=== PATIENT | female | born 1965 | race Caucasian/White ===

== ENCOUNTER 2016-07-23 02:02 | Emergency (ER) | payer OTHER, MEDICAID ==
[~2016-07-23] VITALS: Ht 160 cm; Wt 77.1 kg
[~2016-07-23 02:02] MED LIST: ALBU8.5H4 IH; BUDE10.22 IH; CLON1TAB PO; GLIP10TA11 PO; IPRA12.9 IH; LEVO100T9 PO; LEVO500T15 PO; METF10002 PO; METF500T4 PO; METH4TAB PO; NICO1PAT23 TD; ZIPR80CA2 PO
[2016-07-23 03:16] LABS: BASOPHILS # (AUTO) 0.1 /CMM (0.0-0.2); BASOPHILS % (AUTO) 0.8 % (0.0-2.0); DIFF TOTAL % 100 %; EOSINOPHILS # (AUTO) 0.2 /CMM (0.0-0.7); EOSINOPHILS % (AUTO) 2.9 % (0.0-6.0); HEMATOCRIT 37 % (33-45); HEMOGLOBIN 12.1 g/dL (11.5-14.8); LYMPHOCYTES # (AUTO) 2.3 /CMM (0.8-4.8); LYMPHOCYTES % (AUTO) 32.9 % (20.0-44.0); MEAN CORPUSCULAR HEMOGLOBIN 28 PG (26.0-33.0); MEAN CORPUSCULAR HGB CONC 33 g/dl (31.0-36.0); MEAN CORPUSCULAR VOLUME 84 fL (82-100); MONOCYTES # (AUTO) 0.7 /CMM (0.1-1.30); MONOCYTES % (AUTO) 9.9 % (2.0-12.0); NEUTROPHILS # (AUTO) 3.8 /CMM (1.8-8.9); NEUTROPHILS % (AUTO) 53.5 % (43.0-81.0); PLATELET COUNT (AUTO) 253 /CMM (150-450); RED BLOOD CELL COUNT(AUTO) 4.35 MIL/uL (4.0-5.2); WHITE BLOOD COUNT (AUTO) 7.1 K/uL (4.3-11.0)
[2016-07-23 03:51] LABS: CANNABINOID, URINE NEGATIVE (NEGATIVE); PHENCYCLIDINE SCREEN,URINE NEGATIVE (NEGATIVE)
[2016-07-23 03:53] LABS: ALANINE AMINOTRANSFERASE 30 U/L (12-78); ALBUMIN 3.5 g/dL (3.4-5.0); ANION GAP 13 (5-14); ASPARTATE AMINOTRANSFERASE 18 U/L (15-37); BILIRUBIN,TOTAL 0.2 mg/dL (0.2-1.0); CALCIUM, SERUM 8.7 mg/dL (8.5-10.1); CARBON DIOXIDE 26 mmol/L (21-32); CHLORIDE 103 mmol/L (98-107); CREATININE 0.6 mg/dL (0.6-1.3); GFR 105 mL/min (>60); GLUCOSE 105 mg/dL (74-106); POTASSIUM 4.2 mmol/L (3.5-5.1); SODIUM SERUM 138 mmol/L (136-145); TOTAL PROTEIN, SERUM 6.9 g/dL (6.4-8.2); UREA NITROGEN, BLOOD 22 mg/dL (7-18)
[2016-07-23 03:58] LABS: ACETAMINOPHEN < 2 ug/ml (10-30); INDIRECT BILIRUBIN 0.2 mg/dL (0.0-1.1); SALICYLATE 2.5 mg/dL (2.8-20.0)
[2016-07-23 10:23] VITALS: BP 132/84
== END 2016-07-23 10:24 | disposition home or self-care (01) ==
LOC: ER 02:13
DX: F32.9 Major depressive disorder, single episode, unspecified (principal); F19.10 Other psychoactive substance abuse, uncomplicated; E03.9 Hypothyroidism, unspecified; F20.9 Schizophrenia, unspecified; F31.9 Bipolar disorder, unspecified; E11.9 Type 2 diabetes mellitus without complications; Z71.6 Tobacco abuse counseling; Z87.891 Personal history of nicotine dependence
CPT/HCPCS: 36415; 80048-TC; 80076-TC; 80305; 85025-TC; A4606; G6038-TC; G6039-TC; G6040-TC; Z7610

== ENCOUNTER 2016-08-09 02:54 | Emergency (ER) | payer OTHER, MEDICAID | END 2016-08-09 03:15 | disposition left against medical advice (07) | LOC: ER 02:55 | DX: Z53.21 Procedure and treatment not carried out due to patient leaving prior to being seen by health care provider (principal) ==

== ENCOUNTER 2016-08-09 22:40 | Inpatient (IN) | payer OTHER, MEDICAID ==
[~2016-08-09] VITALS: Ht 160 cm; Wt 77.1 kg
[2016-08-09 23:55] LABS: BASOPHILS # (AUTO) 0.1 /CMM (0.0-0.2); BASOPHILS % (AUTO) 0.6 % (0.0-2.0); DIFF TOTAL % 100 %; EOSINOPHILS # (AUTO) 0.2 /CMM (0.0-0.7); HEMATOCRIT 37 % (33-45); HEMOGLOBIN 12.3 g/dL (11.5-14.8); LYMPHOCYTES # (AUTO) 3.3 /CMM (0.8-4.8); LYMPHOCYTES % (AUTO) 34.9 % (20.0-44.0); MEAN CORPUSCULAR HEMOGLOBIN 28 PG (26.0-33.0); MEAN CORPUSCULAR HGB CONC 34 g/dl (31.0-36.0); MEAN CORPUSCULAR VOLUME 83 fL (82-100); MONOCYTES % (AUTO) 10.9 % (2.0-12.0); NEUTROPHILS # (AUTO) 4.8 /CMM (1.8-8.9); NEUTROPHILS % (AUTO) 51.6 % (43.0-81.0); PLATELET COUNT (AUTO) 249 /CMM (150-450); RED BLOOD CELL COUNT(AUTO) 4.41 MIL/uL (4.0-5.2); WHITE BLOOD COUNT (AUTO) 9.3 K/uL (4.3-11.0)
[2016-08-10 00:02] LABS: ANION GAP 15 (5-14); CALCIUM, SERUM 8.4 mg/dL (8.5-10.1); CARBON DIOXIDE 26 mmol/L (21-32); CHLORIDE 102 mmol/L (98-107); CREATININE 0.6 mg/dL (0.6-1.3); GFR 105 mL/min (>60); GLUCOSE 116 mg/dL (74-106); POTASSIUM 4.1 mmol/L (3.5-5.1); SODIUM SERUM 139 mmol/L (136-145); UREA NITROGEN, BLOOD 18 mg/dL (7-18)
[2016-08-10 04:29] LABS: CANNABINOID, URINE NEGATIVE (NEGATIVE); PHENCYCLIDINE SCREEN,URINE NEGATIVE (NEGATIVE)
[2016-08-10 08:00] VITALS: BP 112/62
[2016-08-10 08:10] VITALS: BP 112/62
[2016-08-10] MEDS ORDERED: MAG HYDROX/AL HYDROX/SIMETH 30 ML UDC PO PRN (08:30)
[2016-08-10] MEDS ORDERED: MAGNESIUM HYDROXIDE 30 ML UDC PO PRN (08:30)
[2016-08-10] MEDS ORDERED: TEMAZEPAM 7.5 MG CAPSULE PO PRN (08:30)
[2016-08-10] MEDS ORDERED: METFORMIN 500 MG TABLET PO SCH (09:00)
[2016-08-10] MEDS ORDERED: Medication Not On Formulary EA (Budesonide/Formoterol Fumarate (Symbicort 80-4.5 Mcg Inh IH SCH (09:00)
[2016-08-10] MEDS ORDERED: DEXTROSE 50%-WATER 50 ML DISP.SYRIN IV PRN (09:00)
[2016-08-10] MEDS: NICOTINE PATCH (21MG) 21 MG PATCH.TD24 TD SCH (10:02)
[2016-08-10] MEDS: glipiZIDE 10 MG TABLET PO SCH (10:10)
[2016-08-10] MEDS: clonazePAM 0.5 MG TABLET PO PRN ×2 (10:17→17:09)
[2016-08-10] MEDS ORDERED: IPRATROPIUM NEB FS 0.5 MG/2.5 ML AMPUL.NEB NEB SCH (11:30)
[2016-08-10] MEDS ORDERED: ALBUTEROL SULFATE 8 GM HFA.AER.AD IH SCH (12:00)
[2016-08-10] MEDS: BLOOD SUGAR DIAGNOSTIC 1 EACH STRIP VI SCH ×3 (12:00→21:16)
[2016-08-10] MEDS: methylPREDNISolone (4MG) 4 MG TABLET PO SCH ×2 (13:43→21:17)
[2016-08-10 16:16] VITALS: BP 103/65
[2016-08-10] MEDS: ESCITALOPRAM OXALATE (10 MG) 10 MG TABLET PO SCH (17:09)
[2016-08-10] MEDS: METFORMIN 500 MG TABLET PO SCH (17:45)
[2016-08-10 20:00] VITALS: BP 93/56
[2016-08-10] MEDS: *INSULIN REGULAR(HUMULIN R)HUM 100 UNIT/ML VIAL SQ PRN (21:21)
[2016-08-10] MEDS ORDERED: QUETIAPINE FUMARATE 100 MG TABLET PO SCH (22:00)
[2016-08-11] MEDS: clonazePAM 0.5 MG TABLET PO PRN ×3 (01:15→14:34)
[2016-08-11 08:00] VITALS: BP 111/67
[2016-08-11] MEDS: ESCITALOPRAM OXALATE (10 MG) 10 MG TABLET PO SCH (08:03)
[2016-08-11] MEDS: glipiZIDE 10 MG TABLET PO SCH (08:03)
[2016-08-11] MEDS: LEVOTHYROXINE SODIUM 100 MCG TABLET PO SCH (08:03)
[2016-08-11] MEDS: METFORMIN 500 MG TABLET PO SCH ×2 (08:03→17:49)
[2016-08-11] MEDS: ACETAMINOPHEN 325 MG TABLET PO PRN ×2 (08:03→14:34)
[2016-08-11] MEDS: NICOTINE PATCH (21MG) 21 MG PATCH.TD24 TD SCH (08:04)
[2016-08-11] MEDS: BLOOD SUGAR DIAGNOSTIC 1 EACH STRIP VI SCH ×4 (08:06→21:23)
[2016-08-11] MEDS: INSULIN REGULAR, HUMAN 100 UNIT/ML 3 ML VIAL SQ PRN (08:09)
[2016-08-11 10:47] LABS: ALBUMIN 3.2 g/dL (3.4-5.0); BILIRUBIN,TOTAL 0.1 mg/dL (0.2-1.0); CALCIUM, SERUM 8.7 mg/dL (8.5-10.1); CREATININE 0.6 mg/dL (0.6-1.3); POTASSIUM 3.9 mmol/L (3.5-5.1); TOTAL PROTEIN, SERUM 6.7 g/dL (6.4-8.2)
[2016-08-11] MEDS: LEVOFLOXACIN (500MG) 500 MG TABLET PO SCH (11:42)
[2016-08-11 16:00] VITALS: BP 104/71
[2016-08-11 20:27] VITALS: BP 94/43
[2016-08-11] MEDS ORDERED: LOPERAMIDE HCL (2 MG CAP) 2 MG CAPSULE PO PRN (20:30)
[2016-08-11] MEDS: QUETIAPINE FUMARATE 100 MG TABLET PO SCH (21:23)
[2016-08-11] MEDS: methylPREDNISolone (4MG) 4 MG TABLET PO SCH (21:23)
[2016-08-12] MEDS: clonazePAM 0.5 MG TABLET PO PRN ×3 (02:35→17:57)
[2016-08-12] MEDS: ACETAMINOPHEN 325 MG TABLET PO PRN (02:36)
[2016-08-12] MEDS: HYDROCODONE/APAP 5/325MG 1 EACH TABLET PO PRN ×3 (03:00→19:36)
[2016-08-12] MEDS: BLOOD SUGAR DIAGNOSTIC 1 EACH STRIP VI SCH ×4 (07:55→21:02)
[2016-08-12] MEDS: INSULIN REGULAR, HUMAN 100 UNIT/ML 3 ML VIAL SQ PRN (07:58)
[2016-08-12] MEDS: LEVOTHYROXINE SODIUM 100 MCG TABLET PO SCH (07:59)
[2016-08-12 08:00] VITALS: BP 100/60
[2016-08-12] MEDS: ESCITALOPRAM OXALATE (10 MG) 10 MG TABLET PO SCH (08:02)
[2016-08-12] MEDS: glipiZIDE 10 MG TABLET PO SCH (08:02)
[2016-08-12] MEDS: NICOTINE PATCH (21MG) 21 MG PATCH.TD24 TD SCH ×2 (08:02→09:00)
[2016-08-12] MEDS: METFORMIN 500 MG TABLET PO SCH ×2 (08:02→17:56)
[2016-08-12] MEDS: LEVOFLOXACIN (500MG) 500 MG TABLET PO SCH (11:37)
[2016-08-12 13:06] LABS: CHOLESTEROL 220 mg/dL (<200); HDL CHOLESTEROL 90 mg/dL (40-60); LDL 111 mg/dL (0-99); TRIGLYCERIDES 201 mg/dL (30-150)
[2016-08-12 16:00] VITALS: BP 93/50
[2016-08-12 19:52] VITALS: BP 133/78
[2016-08-12] MEDS: QUETIAPINE FUMARATE 100 MG TABLET PO SCH (21:02)
[2016-08-12] MEDS: methylPREDNISolone (4MG) 4 MG TABLET PO SCH (21:02)
[2016-08-12] MEDS: *INSULIN REGULAR(HUMULIN R)HUM 100 UNIT/ML VIAL SQ PRN (21:04)
[2016-08-13] MEDS: HYDROCODONE/APAP 5/325MG 1 EACH TABLET PO PRN ×3 (02:08→16:50)
[2016-08-13] MEDS: FLUCONAZOLE (100 MG) 100 MG TABLET PO SCH (02:09)
[2016-08-13] MEDS: clonazePAM 0.5 MG TABLET PO PRN ×2 (07:41→15:44)
[2016-08-13] MEDS: BLOOD SUGAR DIAGNOSTIC 1 EACH STRIP VI SCH ×4 (07:51→21:02)
[2016-08-13] MEDS: METFORMIN 500 MG TABLET PO SCH ×2 (08:08→16:42)
[2016-08-13] MEDS: ESCITALOPRAM OXALATE (10 MG) 10 MG TABLET PO SCH (08:08)
[2016-08-13] MEDS: NICOTINE PATCH (21MG) 21 MG PATCH.TD24 TD SCH (08:08)
[2016-08-13] MEDS: LEVOTHYROXINE SODIUM 100 MCG TABLET PO SCH (08:08)
[2016-08-13] MEDS: glipiZIDE 10 MG TABLET PO SCH (08:08)
[2016-08-13] MEDS: INSULIN REGULAR, HUMAN 100 UNIT/ML 3 ML VIAL SQ PRN ×2 (08:10→16:54)
[2016-08-13 08:19] VITALS: BP 108/72
[2016-08-13] MEDS: LEVOFLOXACIN (500MG) 500 MG TABLET PO SCH (12:08)
[2016-08-13] MEDS: ACETAMINOPHEN 325 MG TABLET PO PRN ×2 (12:42→21:08)
[2016-08-13 16:11] VITALS: BP 116/58
[2016-08-13 20:22] VITALS: BP 116/70
[2016-08-13] MEDS: methylPREDNISolone (4MG) 4 MG TABLET PO SCH (21:10)
[2016-08-13] MEDS ORDERED: QUETIAPINE FUMARATE 100 MG TABLET PO SCH (22:00)
[2016-08-14] MEDS: clonazePAM 0.5 MG TABLET PO PRN ×3 (00:09→16:41)
[2016-08-14] MEDS: HYDROCODONE/APAP 5/325MG 1 EACH TABLET PO PRN ×3 (03:00→18:37)
[2016-08-14] MEDS: ACETAMINOPHEN 325 MG TABLET PO PRN (04:51)
[2016-08-14] MEDS: BLOOD SUGAR DIAGNOSTIC 1 EACH STRIP VI SCH ×4 (07:38→22:02)
[2016-08-14 08:00] VITALS: BP 118/68
[2016-08-14] MEDS: METFORMIN 500 MG TABLET PO SCH ×2 (08:04→16:41)
[2016-08-14] MEDS: NICOTINE PATCH (21MG) 21 MG PATCH.TD24 TD SCH (08:05)
[2016-08-14] MEDS: LEVOTHYROXINE SODIUM 100 MCG TABLET PO SCH (08:05)
[2016-08-14] MEDS: ESCITALOPRAM OXALATE (10 MG) 10 MG TABLET PO SCH (08:05)
[2016-08-14] MEDS: glipiZIDE 10 MG TABLET PO SCH (08:05)
[2016-08-14] MEDS: LEVOFLOXACIN (500MG) 500 MG TABLET PO SCH (10:19)
[2016-08-14] MEDS ORDERED: HYDROCORTISONE 0.5% CREAM 28.35 GM TUBE TP PRN (15:00)
[2016-08-14 16:00] VITALS: BP 106/60
[2016-08-14 20:00] VITALS: BP 102/56
[2016-08-14] MEDS: QUETIAPINE FUMARATE 100 MG TABLET PO SCH (21:55)
[2016-08-14] MEDS: methylPREDNISolone (4MG) 4 MG TABLET PO SCH (21:56)
[2016-08-14] MEDS: TEMAZEPAM 15 MG CAPSULE PO PRN (21:56)
[2016-08-15] MEDS: HYDROCODONE/APAP 5/325MG 1 EACH TABLET PO PRN ×4 (00:33→21:35)
[2016-08-15] MEDS: ACETAMINOPHEN 325 MG TABLET PO PRN (03:34)
[2016-08-15] MEDS: clonazePAM 0.5 MG TABLET PO PRN ×3 (03:34→18:47)
[2016-08-15] MEDS: BLOOD SUGAR DIAGNOSTIC 1 EACH STRIP VI SCH ×4 (07:41→21:52)
[2016-08-15 08:00] VITALS: BP 94/52
[2016-08-15] MEDS: LEVOTHYROXINE SODIUM 100 MCG TABLET PO SCH (08:15)
[2016-08-15] MEDS: METFORMIN 500 MG TABLET PO SCH ×2 (08:15→16:45)
[2016-08-15] MEDS: NICOTINE PATCH (21MG) 21 MG PATCH.TD24 TD SCH ×2 (08:15→08:16)
[2016-08-15] MEDS: ESCITALOPRAM OXALATE (10 MG) 10 MG TABLET PO SCH (08:15)
[2016-08-15] MEDS: LEVOFLOXACIN (500MG) 500 MG TABLET PO SCH (11:16)
[2016-08-15] MEDS: INSULIN REGULAR, HUMAN 100 UNIT/ML 3 ML VIAL SQ PRN (12:07)
[2016-08-15 16:00] VITALS: BP 129/80
[2016-08-15] MEDS: FLUCONAZOLE (100 MG) 100 MG TABLET PO SCH (16:45)
[2016-08-15 20:00] VITALS: BP 108/67
[2016-08-15] MEDS: methylPREDNISolone (4MG) 4 MG TABLET PO SCH (21:48)
[2016-08-15] MEDS: TEMAZEPAM 15 MG CAPSULE PO PRN (21:49)
[2016-08-15] MEDS: QUETIAPINE FUMARATE 100 MG TABLET PO SCH (21:49)
[2016-08-16] MEDS: clonazePAM 0.5 MG TABLET PO PRN ×2 (01:27→08:10)
[2016-08-16] MEDS: ACETAMINOPHEN 325 MG TABLET PO PRN (01:39)
[2016-08-16] MEDS: HYDROCODONE/APAP 5/325MG 1 EACH TABLET PO PRN ×2 (04:31→10:51)
[2016-08-16] MEDS: BLOOD SUGAR DIAGNOSTIC 1 EACH STRIP VI SCH ×2 (07:37→12:42)
[2016-08-16 08:00] VITALS: BP 105/64
[2016-08-16] MEDS: METFORMIN 500 MG TABLET PO SCH (08:10)
[2016-08-16] MEDS: NICOTINE PATCH (21MG) 21 MG PATCH.TD24 TD SCH (08:11)
[2016-08-16] MEDS: LEVOTHYROXINE SODIUM 100 MCG TABLET PO SCH (08:11)
[2016-08-16] MEDS: ESCITALOPRAM OXALATE (10 MG) 10 MG TABLET PO SCH (08:11)
[2016-08-16] MEDS: INSULIN REGULAR, HUMAN 100 UNIT/ML 3 ML VIAL SQ PRN ×2 (08:12→12:42)
[2016-08-16 08:41] LABS: BASOPHILS % (AUTO) 0.4 % (0.0-2.0); DIFF TOTAL % 100 %; EOSINOPHILS % (AUTO) 0.4 % (0.0-6.0); HEMATOCRIT 37 % (33-45); HEMOGLOBIN 12.2 g/dL (11.5-14.8); LYMPHOCYTES # (AUTO) 1.9 /CMM (0.8-4.8); LYMPHOCYTES % (AUTO) 23.3 % (20.0-44.0); MEAN CORPUSCULAR HEMOGLOBIN 28 PG (26.0-33.0); MEAN CORPUSCULAR HGB CONC 33 g/dl (31.0-36.0); MEAN CORPUSCULAR VOLUME 85 fL (82-100); MONOCYTES # (AUTO) 0.3 /CMM (0.1-1.30); MONOCYTES % (AUTO) 3.9 % (2.0-12.0); NEUTROPHILS # (AUTO) 5.9 /CMM (1.8-8.9); PLATELET COUNT (AUTO) 250 /CMM (150-450); RED BLOOD CELL COUNT(AUTO) 4.34 MIL/uL (4.0-5.2); WHITE BLOOD COUNT (AUTO) 8.3 K/uL (4.3-11.0)
[2016-08-16 09:09] LABS: CALCIUM, SERUM 9.6 mg/dL (8.5-10.1); CREATININE 0.9 mg/dL (0.6-1.3); POTASSIUM 4.8 mmol/L (3.5-5.1)
[2016-08-16] MEDS: LEVOFLOXACIN (500MG) 500 MG TABLET PO SCH (10:01)
[2016-08-16 16:00] VITALS: BP 114/66
[2016-08-16] MEDS ORDERED: LACTOBACILLUS RHAMNOSUS GG 1 EACH CAP.SPRINK PO SCH (17:00)
== END 2016-08-16 15:15 | disposition home or self-care (01) | DRG 885 ==
LOC: ER 22:42 → GPS 08-10 07:43
PROVIDERS: ADMIT Psychiatry & Neurology Psychiatry; ATTEND Internal Medicine
DX: F31.5 Bipolar disorder, current episode depressed, severe, with psychotic features (principal); Z59.0 Homelessness; E03.9 Hypothyroidism, unspecified; I10 Essential (primary) hypertension; M19.90 Unspecified osteoarthritis, unspecified site; N76.0 Acute vaginitis; Z87.891 Personal history of nicotine dependence
CPT/HCPCS: 36415; 80048-TC; 80053-TC; 80061-TC; 80305; 82962-TC; 84443-TC; 85025-TC; 87081-TC; A4606; G0480; J1815; J7509; Z7610

== ENCOUNTER 2016-11-14 23:06 | Emergency (ER) | payer OTHER, MEDICAID ==
[~2016-11-14] VITALS: Ht 167.6 cm; Wt 65.3 kg
[~2016-11-14 23:06] MED LIST changes: -ZIPR80CA2 PO
[2016-11-15 00:18] LABS: BASOPHILS # (AUTO) 0.1 /CMM (0.0-0.2); BASOPHILS % (AUTO) 0.7 % (0.0-2.0); EOSINOPHILS # (AUTO) 0.2 /CMM (0.0-0.7); EOSINOPHILS % (AUTO) 2.2 % (0.0-6.0); HEMATOCRIT 35 % (33-45); HEMOGLOBIN 11.3 g/dL (11.5-14.8); LYMPHOCYTES # (AUTO) 2.5 /CMM (0.8-4.8); LYMPHOCYTES % (AUTO) 29.2 % (20.0-44.0); MEAN CORPUSCULAR HEMOGLOBIN 27 PG (26.0-33.0); MEAN CORPUSCULAR HGB CONC 33 g/dl (31.0-36.0); MEAN CORPUSCULAR VOLUME 83 fL (82-100); MONOCYTES # (AUTO) 0.8 /CMM (0.1-1.30); MONOCYTES % (AUTO) 8.7 % (2.0-12.0); NEUTROPHILS # (AUTO) 5.1 /CMM (1.8-8.9); NEUTROPHILS % (AUTO) 59.2 % (43.0-81.0); PLATELET COUNT (AUTO) 264 /CMM (150-450); RDW COEFFICIENT OF VARIATION 17.3 (11.5-15.0); RED BLOOD CELL COUNT(AUTO) 4.23 MIL/uL (4.0-5.2); WHITE BLOOD COUNT (AUTO) 8.7 K/uL (4.3-11.0)
[2016-11-15 00:25] LABS: APPEARANCE,URINE CLEAR (CLEAR); BILIRUBIN,URINE NEGATIVE (NEGATIVE); BLOOD, URINE NEGATIVE Ery/uL (NEGATIVE); COLOR,URINE YELLOW (YELLOW); KETONES,URINE NEGATIVE (NEGATIVE); LEUKOCYTE ESTERASE ,URINE NEGATIVE (NEGATIVE); NITRITE, URINE NEGATIVE (NEGATIVE); PH,URINE 5.5 (5.0-8.0); PROTEIN,URINE NEGATIVE (NEGATIVE); UGLUCOSE NEGATIVE (NEGATIVE); UROBILINOGEN,URINE 0.2 EU/dL (0.2)
--- NOTE | 2016-11-15 00:25 | NUR ---
PT WAS TAKEN TO BED #16 VIA WC. PT AMBULATED FROM THE TO THE [facility].
[2016-11-15 00:28] LABS: CALCIUM, SERUM 8.8 mg/dL (8.5-10.1); CREATININE 0.7 mg/dL (0.6-1.3); POTASSIUM 3.6 mmol/L (3.5-5.1)
[2016-11-15 00:30] LABS: CANNABINOID, URINE NEGATIVE (NEGATIVE); PHENCYCLIDINE SCREEN,URINE NEGATIVE (NEGATIVE)
--- NOTE | 2016-11-15 00:31 | NUR ---
JUAN MIGUEL CUNNINGHAM LCSW IS AT THE BEDSIDE EVALUATING THE PT.
[2016-11-15 00:34] LABS: ALBUMIN 3.9 g/dL (3.4-5.0); BILIRUBIN,DIRECT 0.1 mg/dL (0.0-0.2); BILIRUBIN,TOTAL 0.2 mg/dL (0.2-1.0); TOTAL PROTEIN, SERUM 7.4 g/dL (6.4-8.2)
[2016-11-15 00:38] LABS: SALICYLATE 1.8 mg/dL (2.8-20.0)
--- NOTE | 2016-11-15 02:05 | NUR ---
PT APPEARS TO BE RESTING COMFORTABLY WITH NO S/S OF PAIN OR DISTRESS.
--- NOTE | 2016-11-15 02:17 | NUR ---
pt accepted to [facility]. Accepted by Dr. Jean. # for report [phone].
--- NOTE | 2016-11-15 02:37 | NUR ---
CALLING REPORT TO ACCEPTING RN.
--- NOTE | 2016-11-15 02:45 | NUR ---
REPORT GIVEN TO HOSEA RIGGS AT [facility].
--- NOTE | 2016-11-15 02:57 | NUR ---
PT AMBULATED TO THE BATHROOM WITH A STEADY GAIT.
--- NOTE | 2016-11-15 02:58 | NUR ---
REPORT GIVEN TO HOSEA OLIVA/SIM FOR JAILENE. PT RETURNED FROM THE BATHROOM AND IS RESTING COMFORTABLY IN BED.
--- NOTE | 2016-11-15 04:54 | NUR ---
ASSUMED TRANSFER CARE OF PT AT THIS TIME ON BEHALF OF PRIMARY NURSE HAZEL. REPORT GIVEN TO [facility] STAFF BY HAZEL/HOSEA.
[2016-11-15 05:07] VITALS: BP 144/70
== END 2016-11-15 05:07 ==
LOC: ER 23:06
DX: F32.9 Major depressive disorder, single episode, unspecified (principal); E03.9 Hypothyroidism, unspecified; E11.9 Type 2 diabetes mellitus without complications; F31.9 Bipolar disorder, unspecified; Z87.891 Personal history of nicotine dependence; Z90.89 Acquired absence of other organs
CPT/HCPCS: 36415; 80048; 80076; 80305; 80329; 81001; 85025; 99285; A4606; G0480 ×2; 81000-TC; G6039-TC; Z7610

== ENCOUNTER 2016-12-05 21:29 | Emergency (ER) | payer OTHER ==
[~2016-12-05] VITALS: Ht 162.6 cm; Wt 81.6 kg
--- NOTE | 2016-12-05 21:37 | NUR ---
PT SELF PRESENTS TO ER. AMBULATORY TO BED 10. C/O DEPRESSION/SI W/ PLAN TO HANG HERSELF. PT STATES BEEN GOING ON FOR COUPLE OF DAYS BECAUSE HER SISTER PASSED. DENIES HI. DENIES ANY DISCOMFORT. PLACED ON SI PRECAUTION. STABLE VITALS. AWAITING MD BATRES.
--- NOTE | 2016-12-05 21:45 | NUR ---
DRILLER HAND AT BEDSIDE FOR BLOOD DRAW.
[2016-12-05 21:58] LABS: BASOPHILS # (AUTO) 0.1 /CMM (0.0-0.2); BASOPHILS % (AUTO) 0.7 % (0.0-2.0); EOSINOPHILS # (AUTO) 0.2 /CMM (0.0-0.7); EOSINOPHILS % (AUTO) 2.6 % (0.0-6.0); HEMATOCRIT 34 % (33-45); HEMOGLOBIN 11.2 g/dL (11.5-14.8); LYMPHOCYTES # (AUTO) 3.1 /CMM (0.8-4.8); MEAN CORPUSCULAR HEMOGLOBIN 27 PG (26.0-33.0); MEAN CORPUSCULAR HGB CONC 33 g/dl (31.0-36.0); MEAN CORPUSCULAR VOLUME 81 fL (82-100); MONOCYTES # (AUTO) 0.8 /CMM (0.1-1.30); MONOCYTES % (AUTO) 9.9 % (2.0-12.0); NEUTROPHILS # (AUTO) 3.5 /CMM (1.8-8.9); NEUTROPHILS % (AUTO) 45.8 % (43.0-81.0); PLATELET COUNT (AUTO) 254 /CMM (150-450); RDW COEFFICIENT OF VARIATION 16.5 (11.5-15.0); RED BLOOD CELL COUNT(AUTO) 4.16 MIL/uL (4.0-5.2); WHITE BLOOD COUNT (AUTO) 7.6 K/uL (4.3-11.0)
[2016-12-05 22:09] LABS: CALCIUM, SERUM 8.5 mg/dL (8.5-10.1); CREATININE 0.9 mg/dL (0.6-1.3); POTASSIUM 3.5 mmol/L (3.5-5.1)
--- NOTE | 2016-12-05 23:23 | NUR ---
REPORT TO CHARGE NURSE HAZEL FOR JAILENE.
--- NOTE | 2016-12-06 00:13 | NUR ---
JUAN MIGUEL SURFACE ROOM SHOP OPTICIAN PAGED FOR EVAL.
--- NOTE | 2016-12-06 01:53 | NUR ---
JUAN MIGUEL OSTEOPATHIC PHYSICIAN AT BEDSIDE FOR EXAM.
--- NOTE | 2016-12-06 10:54 | NUR ---
CALLED FOR BREAKFAST TRAY
--- NOTE | 2016-12-06 10:54 | NUR ---
PINKY AT BEDSIDE FOR PSYCH EVAL
--- NOTE | 2016-12-06 11:00 | NUR ---
Patient discharged to home in stable condition. Written and verbal after care instructions given. Patient verbalizes understanding of instruction.
--- NOTE | 2016-12-06 11:01 | NUR ---
PER JADEN MASON PT CAN GO HOME. GAVE REFERRAL TO FOLLOW UP.
[2016-12-06 11:02] VITALS: BP 136/80
--- NOTE | 2016-12-06 11:05 | NUR ---
DENIES ANY HI AND SI.
== END 2016-12-06 11:05 | disposition home or self-care (01) ==
LOC: ER 21:29
DX: F29 Unspecified psychosis not due to a substance or known physiological condition (principal); D64.9 Anemia, unspecified; E11.9 Type 2 diabetes mellitus without complications; F31.9 Bipolar disorder, unspecified; E03.9 Hypothyroidism, unspecified; Z87.891 Personal history of nicotine dependence; Z98.890 Other specified postprocedural states
CPT/HCPCS: 36415; 80048; 80305; 85025; 99284; A4606; G0480; Z7610

== ENCOUNTER 2016-12-23 19:35 | Emergency (ER) | payer OTHER, MEDICAID ==
[~2016-12-23] VITALS: Ht 165.1 cm; Wt 72.6 kg
--- NOTE | 2016-12-23 20:00 | NUR ---
PT PRESENTS TO ER C/O SI WITH PLAN TO HANG SELF. DENIES PHYSICAL COMPLAINTS. REPORTS SHE HAS NOT BEEN TAKING HER PSYCH MEDS. SEEKING VOLUNTARY ADMISSION FOR PSYCH. NAD NOTED. IN ER BED 09.
[2016-12-23 20:09] LABS: APPEARANCE,URINE Clear (CLEAR); BILIRUBIN,URINE Negative (NEGATIVE); BLOOD, URINE Negative Ery/uL (NEGATIVE); COLOR,URINE Yellow (YELLOW); KETONES,URINE Negative (NEGATIVE); LEUKOCYTE ESTERASE ,URINE Trace (NEGATIVE); NITRITE, URINE Negative (NEGATIVE); PROTEIN,URINE Negative (NEGATIVE); UGLUCOSE Negative (NEGATIVE); UROBILINOGEN,URINE 0.2 EU/dL (0.2)
[2016-12-23 20:14] LABS: BASOPHILS # (AUTO) 0.1 /CMM (0.0-0.2); BASOPHILS % (AUTO) 0.7 % (0.0-2.0); EOSINOPHILS # (AUTO) 0.2 /CMM (0.0-0.7); EOSINOPHILS % (AUTO) 2.7 % (0.0-6.0); HEMATOCRIT 36 % (33-45); HEMOGLOBIN 11.9 g/dL (11.5-14.8); LYMPHOCYTES # (AUTO) 3.5 /CMM (0.8-4.8); LYMPHOCYTES % (AUTO) 45.8 % (20.0-44.0); MEAN CORPUSCULAR HEMOGLOBIN 27 PG (26.0-33.0); MEAN CORPUSCULAR HGB CONC 33 g/dl (31.0-36.0); MEAN CORPUSCULAR VOLUME 82 fL (82-100); MONOCYTES # (AUTO) 0.5 /CMM (0.1-1.30); MONOCYTES % (AUTO) 6.8 % (2.0-12.0); NEUTROPHILS # (AUTO) 3.3 /CMM (1.8-8.9); PLATELET COUNT (AUTO) 262 /CMM (150-450); RED BLOOD CELL COUNT(AUTO) 4.38 MIL/uL (4.0-5.2); WHITE BLOOD COUNT (AUTO) 7.6 K/uL (4.3-11.0)
[2016-12-23 20:29] LABS: CALCIUM, SERUM 9.1 mg/dL (8.5-10.1); CARBON DIOXIDE 27 mmol/L (21-32); CHLORIDE 101 mmol/L (98-107); CREATININE 0.8 mg/dL (0.6-1.3); GLUCOSE 123 mg/dL (74-106); POTASSIUM 3.5 mmol/L (3.5-5.1); SODIUM SERUM 138 mmol/L (136-145); UREA NITROGEN, BLOOD 20 mg/dL (7-18)
[2016-12-23 20:29] LABS: BACTERIA,URINE None seen /HPF (None Seen); RBC,URINE NONE SEEN /HPF (0-2); SQUAMOUS EPITHELIAL CELL,UR Few /HPF (None Seen)
[2016-12-23 20:35] LABS: ACETAMINOPHEN < 10 ug/ml (10-30); ALANINE AMINOTRANSFERASE 45 U/L (12-78); ALBUMIN 3.6 g/dL (3.4-5.0); ALCOHOL, BLOOD 122 mg/dL (0-0); ALKALINE PHOSPHATASE 54 U/L (46-116); ASPARTATE AMINOTRANSFERASE 27 U/L (15-37); BILIRUBIN,TOTAL 0.2 mg/dL (0.2-1.0); SALICYLATE 2.2 mg/dL (2.8-20.0); TOTAL PROTEIN, SERUM 7.6 g/dL (6.4-8.2)
--- NOTE | 2016-12-23 22:48 | NUR ---
RESTING QUIETLY, NAD NOTED. AWAITING ART FOR PSYCH EVAL.
--- NOTE | 2016-12-23 22:50 | NUR ---
CALLED ART FOR PSYCH EVAL, ETA WITHIN THE HOUR
--- NOTE | 2016-12-23 23:44 | NUR ---
ART AT BEDSIDE
[2016-12-24 00:36] VITALS: BP 126/65
--- NOTE | 2016-12-24 01:43 | NUR ---
[facility] CALLED FOR TRANSPORT. ETA > 4.5 HRS. [facility] CALLED. ETA 45-60 MIN.
--- NOTE | 2016-12-24 01:47 | NUR ---
RESTING QUIETLY, NAD NOTED. ALL NEEDS ATTENDED TO.
--- NOTE | 2016-12-24 02:52 | NUR ---
PT TRANSPORTED TO [place] WITH [facility]. REPORT GIVEN TO UI DEVELOPER. ALL PAPERWORK WITH UI DEVELOPER.
== END 2016-12-24 03:12 ==
LOC: ER 19:35
DX: R45.851 Suicidal ideations (principal); F31.9 Bipolar disorder, unspecified; F10.10 Alcohol abuse, uncomplicated; E11.9 Type 2 diabetes mellitus without complications; E03.9 Hypothyroidism, unspecified; M77.9 Enthesopathy, unspecified; Z90.89 Acquired absence of other organs; Z98.890 Other specified postprocedural states; Z87.891 Personal history of nicotine dependence
CPT/HCPCS: 36415; 80048-TC; 80076-TC; 80305; 81000-TC; 85025-TC; A4606; G0480; Z7610

== ENCOUNTER 2017-01-11 02:35 | Emergency (ER) | payer OTHER, MEDICAID ==
[~2017-01-11] VITALS: Ht 160 cm; Wt 90.7 kg
[2017-01-11 02:40] VITALS: BP 152/78
--- NOTE | 2017-01-11 03:35 | NUR ---
Patient eloped from facility. ER MD notified.
== END 2017-01-11 03:39 | disposition left against medical advice (07) ==
LOC: ER 02:37
DX: F31.9 Bipolar disorder, unspecified (principal); Z76.5 Malingerer [conscious simulation]; E11.9 Type 2 diabetes mellitus without complications; G89.29 Other chronic pain; Z91.19 Patient's noncompliance with other medical treatment and regimen; E03.9 Hypothyroidism, unspecified; Z87.891 Personal history of nicotine dependence
CPT/HCPCS: A4606; Z7502; Z7610

== ENCOUNTER 2017-01-11 21:22 | Emergency (ER) | payer OTHER, MEDICAID ==
[~2017-01-11] VITALS: Ht 160 cm; Wt 90.7 kg
--- NOTE | 2017-01-11 21:28 | NUR ---
PT TO ER BED 10. C/O AUDITORY HALLUCINATION TELLING HER TO KILL HERSELF. PT STATES SUICIDAL W/ PLAN TO HANG HERSELF. APPEARS INTOXICATED. VERBALLY ABUSIVE TO STAFF. PLACED ON SI PRECAUTION. AWAITING MD BATRES.
[2017-01-11 22:13] LABS: BASOPHILS # (AUTO) 0.1 /CMM (0.0-0.2); BASOPHILS % (AUTO) 0.6 % (0.0-2.0); EOSINOPHILS # (AUTO) 0.4 /CMM (0.0-0.7); EOSINOPHILS % (AUTO) 3.9 % (0.0-6.0); HEMATOCRIT 34 % (33-45); HEMOGLOBIN 10.9 g/dL (11.5-14.8); LYMPHOCYTES # (AUTO) 4.1 /CMM (0.8-4.8); LYMPHOCYTES % (AUTO) 41.7 % (20.0-44.0); MEAN CORPUSCULAR HEMOGLOBIN 26 PG (26.0-33.0); MEAN CORPUSCULAR HGB CONC 32 g/dl (31.0-36.0); MEAN CORPUSCULAR VOLUME 82 fL (82-100); MONOCYTES % (AUTO) 10.3 % (2.0-12.0); NEUTROPHILS # (AUTO) 4.3 /CMM (1.8-8.9); NEUTROPHILS % (AUTO) 43.5 % (43.0-81.0); PLATELET COUNT (AUTO) 247 /CMM (150-450); RDW COEFFICIENT OF VARIATION 15.3 (11.5-15.0); RED BLOOD CELL COUNT(AUTO) 4.15 MIL/uL (4.0-5.2); WHITE BLOOD COUNT (AUTO) 9.9 K/uL (4.3-11.0)
[2017-01-11 22:22] LABS: CALCIUM, SERUM 8.4 mg/dL (8.5-10.1); CREATININE 0.7 mg/dL (0.6-1.3); POTASSIUM 3.6 mmol/L (3.5-5.1)
--- NOTE | 2017-01-11 22:41 | NUR ---
DR ANNE AT BEDSIDE FOR EVAL.
[2017-01-11] MEDS ORDERED: WATER FOR INJECTION,STERILE 10 ML ONE (22:57)
[2017-01-11] MEDS ORDERED: OLANZAPINE 10 MG VIAL IM ONE ×2 (22:57→23:00)
--- NOTE | 2017-01-11 23:47 | NUR ---
REPORT GIVEN TO CHRISTIAN JC FOR JAILENE.
--- NOTE | 2017-01-12 01:50 | NUR ---
PT AMBULATED TO THE BATHROOM WITH A STEADY GAIT.
--- NOTE | 2017-01-12 01:58 | NUR ---
DR. ANNE IS SPEAKING TO THE PT WHO IS YELLING AT HIM. PT DENIES SI AT THIS TIME.
--- NOTE | 2017-01-12 02:09 | NUR ---
Patient discharged to home in stable condition. Written and verbal after care instructions given. Patient verbalizes understanding of instruction. PT AMBULATED OUT WITH A STEADY GAIT. VSS.
[2017-01-12 02:11] VITALS: BP 138/79
--- NOTE | 2017-01-12 02:11 | NUR ---
PT REFUSED TO SIGN DISCHARGE PAPERWORK AND REFUSED ALL ACI.
== END 2017-01-12 02:12 | disposition home or self-care (01) ==
LOC: ER 21:24
DX: F31.9 Bipolar disorder, unspecified (principal); Z76.5 Malingerer [conscious simulation]; E03.9 Hypothyroidism, unspecified; E11.9 Type 2 diabetes mellitus without complications; G89.29 Other chronic pain; Z87.891 Personal history of nicotine dependence
CPT/HCPCS: 36415; 80048; 80305; 85025; 96372; 99285; A4606; G0480; J3490; Z7610

== ENCOUNTER → 2017-03-14 | Emergency (ER) | payer OTHER, MEDICAID ==
[~2017-03-14] VITALS: Ht 160 cm; Wt 93.4 kg
[2017-03-14 13:39] VITALS: BP 118/45
== END | disposition home or self-care (01) ==
LOC: ER 13:41
DX: J02.9 Acute pharyngitis, unspecified (principal); R09.82 Postnasal drip; E03.9 Hypothyroidism, unspecified; E11.9 Type 2 diabetes mellitus without complications; Z87.891 Personal history of nicotine dependence
CPT/HCPCS: A4606; Z7610

== ENCOUNTER 2017-04-28 23:01 | Emergency (ER) | payer OTHER, MEDICAID ==
[~2017-04-28] VITALS: Ht 167.6 cm; Wt 79.4 kg
--- NOTE | 2017-04-28 23:14 | NUR ---
PT ERICA POE FOR C/O SI W/ NO PLANS. AOX3 W/ RESP EVEN & UNLABORED, DENIES ANY PAIN OR SOB W/ NAD NOTED. PENDING FURTHER GISEL PATEL MD.
--- NOTE | 2017-04-28 23:28 | NUR ---
BLENDER AT BEDSIDE FOR BLOOD DRAW.
--- NOTE | 2017-04-28 23:31 | NUR ---
pt refusing to ambulate to the restroom requesting for FC or bedpan. bedpan provided.
[2017-04-28 23:34] LABS: BASOPHILS % (AUTO) 0.6 % (0.0-2.0); EOSINOPHILS # (AUTO) 0.3 /CMM (0.0-0.7); EOSINOPHILS % (AUTO) 4.1 % (0.0-6.0); HEMATOCRIT 34 % (33-45); LYMPHOCYTES # (AUTO) 2.9 /CMM (0.8-4.8); LYMPHOCYTES % (AUTO) 33.3 % (20.0-44.0); MEAN CORPUSCULAR HEMOGLOBIN 25 PG (26.0-33.0); MEAN CORPUSCULAR HGB CONC 33 g/dl (31.0-36.0); MEAN CORPUSCULAR VOLUME 78 fL (82-100); MONOCYTES # (AUTO) 0.5 /CMM (0.1-1.30); MONOCYTES % (AUTO) 6.1 % (2.0-12.0); NEUTROPHILS # (AUTO) 4.8 /CMM (1.8-8.9); NEUTROPHILS % (AUTO) 55.9 % (43.0-81.0); PLATELET COUNT (AUTO) 243 /CMM (150-450); RDW COEFFICIENT OF VARIATION 18.4 (11.5-15.0); RED BLOOD CELL COUNT(AUTO) 4.33 MIL/uL (4.0-5.2); WHITE BLOOD COUNT (AUTO) 8.6 K/uL (4.3-11.0)
[2017-04-28 23:46] LABS: CREATININE 0.6 mg/dL (0.6-1.3); POTASSIUM 3.2 mmol/L (3.5-5.1)
[2017-04-28 23:51] LABS: ALBUMIN 3.5 g/dL (3.4-5.0); BILIRUBIN,TOTAL 0.3 mg/dL (0.2-1.0); SALICYLATE 2.1 mg/dL (2.8-20.0); TOTAL PROTEIN, SERUM 6.8 g/dL (6.4-8.2)
--- NOTE | 2017-04-29 00:01 | NUR ---
Art, CUSTOMER ASSISTANCE REPRESENTATIVE at bedside for psych eval.
[2017-04-29 00:11] LABS: APPEARANCE,URINE CLEAR (CLEAR); BILIRUBIN,URINE NEGATIVE (NEGATIVE); BLOOD, URINE NEGATIVE Ery/uL (NEGATIVE); COLOR,URINE YELLOW (YELLOW); KETONES,URINE NEGATIVE (NEGATIVE); LEUKOCYTE ESTERASE ,URINE NEGATIVE (NEGATIVE); NITRITE, URINE NEGATIVE (NEGATIVE); PH,URINE 5.5 (5.0-8.0); PROTEIN,URINE NEGATIVE (NEGATIVE); UGLUCOSE NEGATIVE (NEGATIVE); UROBILINOGEN,URINE 0.2 EU/dL (0.2)
--- NOTE | 2017-04-29 00:27 | NUR ---
Attempt to ambulate pt. pt refusing to try and ambulate.
--- NOTE | 2017-04-29 01:53 | NUR ---
Pt asleep in bed w/ resp even & unlabored, nad noted.
--- NOTE | 2017-04-29 02:38 | NUR ---
pt sitting up in bed, states she can finally walk now. pt then went back to sleep.
--- NOTE | 2017-04-29 04:18 | NUR ---
pt continues to sleep in bed w/ nad noted.
--- NOTE | 2017-04-29 06:27 | NUR ---
pt continues to sleep in bed w/ resp even & unlabored, nad noted.
--- NOTE | 2017-04-29 06:35 | NUR ---
Pt ambulatory w/ steady gait, resp even & unlabored, denies any pain, no SI w/ nad noted. Patient discharged to streets in stable condition. Written and verbal after care instructions given along w/ referrals for homeless shelters. Patient verbalizes understanding of instruction.
[2017-04-29 06:37] VITALS: BP 122/76
== END 2017-04-29 06:37 | disposition home or self-care (01) ==
LOC: ER 23:03
DX: R45.851 Suicidal ideations (principal); E03.9 Hypothyroidism, unspecified; E11.9 Type 2 diabetes mellitus without complications; F15.10 Other stimulant abuse, uncomplicated; F19.10 Other psychoactive substance abuse, uncomplicated; F31.9 Bipolar disorder, unspecified; Z87.891 Personal history of nicotine dependence; Z98.890 Other specified postprocedural states
CPT/HCPCS: 36415; 80048; 80076; 80305; 80329; 81001; 85025; 99284; A4606; G0480 ×2; Z7610; 81000-TC

== ENCOUNTER 2017-05-09 19:45 | Emergency (ER) | payer OTHER, MEDICAID ==
[~2017-05-09] VITALS: Ht 157.5 cm; Wt 90.7 kg
[2017-05-09 19:52] VITALS: BP 170/100
--- NOTE | 2017-05-09 19:52 | NUR ---
want to pt jovany from the streets to er bed 10. appears anxious stating she lost her wallet, id and luggage. states she needs a ride w/ [employer]. tachycardic, denies any pain at this time. awaiting md perales.
--- NOTE | 2017-05-09 19:59 | NUR ---
dr chase at bedside for eval.
--- NOTE | 2017-05-09 20:03 | NUR ---
pt wants to a ride or a taxi voucher to a alf. pt is anxious, wants to stay at the waiting room. denies si/hi.
== END 2017-05-09 20:23 | disposition left against medical advice (07) ==
LOC: ER 19:47
DX: F41.9 Anxiety disorder, unspecified (principal); E03.9 Hypothyroidism, unspecified; E11.9 Type 2 diabetes mellitus without complications; F31.9 Bipolar disorder, unspecified; Z87.891 Personal history of nicotine dependence; Z64.4 Discord with counselors
CPT/HCPCS: 99284; A4606; Z7610